=== PATIENT | female | born 1960 | race Caucasian/White ===

== ENCOUNTER → 2016-11-16 | Outpatient (CLI) | payer BC ==
[2016-11-16 08:57] LABS: Basophils # (A) 0.2 k/uL (0-0.2); Basophils % (A) 3 %; CH 28.4; CHCM 33.1; Eosinophils # (A) 0.9 k/uL (0-0.7); Eosinophils % (A) 10 %; HCT 36.2 % (34.0-46.0); HDW 2.66; HGB 11.8 gm/dL (11.4-16.0); Luc # (Auto) 0.24; Luc % (Auto) 3; Lymphocytes # (A) 3.3 k/uL (1.0-4.8); Lymphocytes % (A) 37 %; MCHC 32.6 g/dL (31.0-37.0); Mean Platelet Volume 8.3; Monocytes # (A) 0.5 k/uL (0-1.0); Monocytes % (A) 6 %; Neutrophils # (A) 3.7 k/uL (1.3-7.7); Neutrophils % (A) 42 %; RBC 4.21 m/uL (3.80-5.40); RDW 12.3 % (11.5-15.5); WBC 8.9 k/uL (3.8-10.6); WBC (Perox) 9.44
[2016-11-16 12:31] LABS: % Iron Saturation 9.3 % (20-50)
== END | disposition home or self-care (01) ==
LOC: LABWHC1 08:19
PROVIDERS: ATTEND Internal Medicine Endocrinology, Diabetes & Metabolism
DX: E11.649 Type 2 diabetes mellitus with hypoglycemia without coma (principal); E78.5 Hyperlipidemia, unspecified; E03.9 Hypothyroidism, unspecified; E11.65 Type 2 diabetes mellitus with hyperglycemia
CPT/HCPCS: 36415; 82607; 82728; 83036; 83540; 83550; 84439; 84443; 85025

== ENCOUNTER → 2017-03-18 | Outpatient (CLI) | payer BC ==
[2017-03-18 13:26] VITALS: BP 128/80; PULSE 71; RESP 16; TEMP 98.4; BMI 33.1
--- NOTE | 2017-04-01 17:15 | P.HPBAR ---
Bariatric H&P - History & Physicial H&P Date: 04/01/17 History & Physicial: Visit/CC: Band adj Patient initial contact: Initial weight: 120.202 kg Initial weight in pounds: 265.00 Height: 5 ft 4 in Initial BMI: 45.4 Last weight: Current weight: 87.657 kg Current weight in pounds: 193.00 Current BMI: 33.1 [place] body weight (based on NIH guidelines): 54.431 kg Excess body weight loss: 49.6% The patient is a 56 year-old F who presents for Bariatric Assessment. Patient presents today for her LAP-BAND follow-up. She is requesting a fill of her LAP- BAND. She is currently hunger. Past Medical History History of Any Multi-Drug Resistant Organisms: None Reported Past Surgical History: Ear Surgery Additional Past Surgical History / Comment(s): sinus surgery Smoking Status: Never smoker Surgical - Exam Vital Signs Temp Pulse Resp BP 98.4 F 71 16 128/80 03/18/17 13:17 03/18/17 13:17 03/18/17 13:17 03/18/17 13:17 - General well developed - Abdomen Abdomen: soft, non tender Bariatric Assessment & Plan Plan: Patient's lap band was adjusted. She currently is 9.4 mL in the band. She'll follow-up in one month for recheck. Bariatric Checklist Checklist: Plan: Checklist: EGD: 1. Hiatal hernia: 2. H. Pylori: HgbA1c: Vitamin D: Smoking: Never smoker Primary care physician referral: Dr. Reinoso Psychiatry clearance: Cardiology clearance: Sleep study: Diet journal: VTE risk score: VTE risk level: Rehab needs at discharge:
== END | disposition home or self-care (01) ==
LOC: BARWHC3 12:38
PROVIDERS: ATTEND Surgery
DX: Z09 Encounter for follow-up examination after completed treatment for conditions other than malignant neoplasm (principal); Z98.84 Bariatric surgery status
CPT/HCPCS: 99203

== ENCOUNTER → 2017-03-20 | Outpatient (CLI) | payer BC ==
[2017-03-20 09:43] VITALS: BP 122/70; PULSE 71; TEMP 97.8; BMI 32.5
--- NOTE | 2017-03-20 10:13 | P.HPBAR ---
Bariatric H&P - History & Physicial H&P Date: 03/20/17 History & Physicial: Visit/CC: lap band follow up Patient initial contact: Initial weight: 120.202 kg Initial weight in pounds: 265.00 Height: 5 ft 4 in Initial BMI: 45.4 Last weight: Current weight: 85.91 kg Current weight in pounds: 189.40 Current BMI: 32.5 [place] body weight (based on NIH guidelines): 54.431 kg Excess body weight loss: 52.1% The patient is a 56 year-old F who presents for Bariatric Assessment. Patient presents today for LAP-BAND follow-up. She had an adjustment performed 72 hours ago. She states she her band is too tight. She's had dysphagia. Past Medical History History of Any Multi-Drug Resistant Organisms: None Reported Past Surgical History: Ear Surgery Additional Past Surgical History / Comment(s): sinus surgery Smoking Status: Never smoker Surgical - Exam Vital Signs Temp Pulse BP 97.8 F 71 122/70 03/20/17 09:39 03/20/17 09:39 03/20/17 09:39 - General well developed, no distress - Abdomen Abdomen: soft, non tender Bariatric Assessment & Plan Plan: Dysphagia secondary to LAP-BAND adjustment. Patient LAP-BAND was emptied. 0.5 mL remove her LAP-BAND. She currently has 9.2 mL in the band. She's ill drink water without difficulty. Patient will follow-up in one month. Bariatric Checklist Checklist: Plan: Checklist: EGD: 1. Hiatal hernia: 2. H. Pylori: HgbA1c: Vitamin D: Smoking: Never smoker Primary care physician referral: Dr. Reinoso Psychiatry clearance: Cardiology clearance: Sleep study: Diet journal: VTE risk score: VTE risk level: Rehab needs at discharge:
== END ==
LOC: BARWHC3 09:19
PROVIDERS: ATTEND Surgery
DX: Z48.815 Encounter for surgical aftercare following surgery on the digestive system (principal); Z98.84 Bariatric surgery status
CPT/HCPCS: 99212

== ENCOUNTER → 2017-05-20 | Outpatient (CLI) | payer BC ==
[2017-05-20 14:26] VITALS: BP 145/63; PULSE 78; TEMP 98.7; BMI 32.0
--- NOTE | 2017-05-20 14:51 | P.HPBAR ---
Bariatric H&P - History & Physicial H&P Date: 05/20/17 History & Physicial: Visit/CC: lap band follow up Patient initial contact: Initial weight: 120.202 kg Initial weight in pounds: 265.00 Height: 5 ft 4 in Initial BMI: 45.4 Last weight: 189 Current weight: 84.64 kg Current weight in pounds: 186.60 Current BMI: 32.0 [place] body weight (based on NIH guidelines): 54.431 kg Excess body weight loss: 54.0% The patient is a 56 year-old F who presents for Bariatric Assessment. Patient presents today for lab band follow. She has complaints of GERD and dysphagia. She is requesting fluid be removed from her band. Past Medical History History of Any Multi-Drug Resistant Organisms: None Reported Past Surgical History: Ear Surgery Additional Past Surgical History / Comment(s): sinus surgery Smoking Status: Never smoker Surgical - Exam Vital Signs Temp Pulse BP 98.7 F 78 145/63 05/20/17 14:23 05/20/17 14:23 05/20/17 14:23 - General well developed, no distress - Eyes PERRL - Abdomen Abdomen: soft, non tender Bariatric Assessment & Plan Plan: Patient LAP-BAND was just. 2 mL her was removed for band. She currently has 7.2 mL in the band. She was able to water without difficulty. Bariatric Checklist Checklist: Plan: Checklist: EGD: 1. Hiatal hernia: 2. H. Pylori: HgbA1c: Vitamin D: Smoking: Never smoker Primary care physician referral: Dr. Reinoso Psychiatry clearance: Cardiology clearance: Sleep study: Diet journal: VTE risk score: VTE risk level: Rehab needs at discharge:
== END | disposition home or self-care (01) ==
LOC: BARWHC3 13:37
PROVIDERS: ATTEND Surgery
DX: Z48.815 Encounter for surgical aftercare following surgery on the digestive system (principal); Z98.84 Bariatric surgery status
CPT/HCPCS: 99212

== ENCOUNTER → 2017-05-28 | Outpatient (CLI) | payer BC ==
[2017-05-28 09:04] LABS: Basophils # (A) 0.1 k/uL (0-0.2); Basophils % (A) 1 %; CH 26.8; Eosinophils # (A) 0.6 k/uL (0-0.7); Eosinophils % (A) 7 %; HCT 35.6 % (34.0-46.0); HDW 2.62; HGB 11.8 gm/dL (11.4-16.0); Luc # (Auto) 0.28; Luc % (Auto) 3; Lymphocytes # (A) 3.9 k/uL (1.0-4.8); Lymphocytes % (A) 44 %; MCH 27.9 pg (25.0-35.0); MCHC 33.2 g/dL (31.0-37.0); MCV 84.1 fL (80.0-100.0); Mean Platelet Volume 7.9; Monocytes # (A) 0.6 k/uL (0-1.0); Monocytes % (A) 6 %; Neutrophils # (A) 3.5 k/uL (1.3-7.7); Neutrophils % (A) 39 %; RBC 4.23 m/uL (3.80-5.40); RDW 12.6 % (11.5-15.5); WBC (Perox) 9.02
[2017-05-28 09:33] LABS: Calcium 9.1 mg/dL (8.4-10.2); Potassium 4.3 mmol/L (3.5-5.1); Total Bilirubin 0.6 mg/dL (0.2-1.3); Total Protein 6.1 g/dL (6.3-8.2); Uric Acid 7.3 mg/dL (3.7-7.4)
[2017-05-28 09:44] LABS: % Iron Saturation 15.7 % (20-50)
[2017-05-28 15:00] LABS: Hemoglobin A1C 7.8 % (4.2-6.1)
== END | disposition home or self-care (01) ==
LOC: LABWHC1 07:28
PROVIDERS: ATTEND Internal Medicine Endocrinology, Diabetes & Metabolism
DX: E78.5 Hyperlipidemia, unspecified (principal); E03.8 Other specified hypothyroidism; E11.649 Type 2 diabetes mellitus with hypoglycemia without coma
CPT/HCPCS: 36415; 80053; 80061; 82306; 82607; 82728; 82746; 83036; 83540; 83550; 84436; 84439; 84443; 84550; 85025

== ENCOUNTER → 2017-06-17 | Outpatient (CLI) | payer BC ==
[2017-06-17 10:06] LABS: Calcium 9.5 mg/dL (8.4-10.2); Potassium 4.4 mmol/L (3.5-5.1); Total Bilirubin 0.3 mg/dL (0.2-1.3); Total Protein 6.5 g/dL (6.3-8.2)
== END | disposition home or self-care (01) ==
LOC: LABWHC1 09:18
PROVIDERS: ATTEND Internal Medicine Endocrinology, Diabetes & Metabolism
DX: E11.649 Type 2 diabetes mellitus with hypoglycemia without coma (principal)
CPT/HCPCS: 36415; 80053

== ENCOUNTER → 2017-06-27 | Outpatient (CLI) | payer BC ==
--- NOTE | 2017-07-01 10:39 | MM ---
Reason for exam: screening (asymptomatic). Last mammogram was performed 1 year and 2 months ago. History: Patient is postmenopausal and is nulliparous. Family history of breast cancer in paternal cousin at age 55, breast cancer in paternal cousin at age 60, and breast cancer in maternal aunt at age 65. Took hormonal contraceptives for 5 years beginning at age 18. Took estrogen for 1 year beginning at age 46. Took progesterone for 19 years beginning at age 28. Physical Findings: A clinical breast exam by your physician is recommended on an annual basis and results should be correlated with mammographic findings. MG Screening Mammo w CAD Bilateral CC and MLO view(s) were taken. Prior study comparison: April 30, 2016, bilateral MG screening mammo w CAD. April 21, 2015, bilateral MG screening mammo w CAD. March 09, 2014, bilateral MG screening mammo w CAD. The breast tissue is heterogeneously dense. This may lower the sensitivity of mammography. Finding: There are typically benign round, diffuse, regional and grouped calcifications in both breasts. Developing asymmetry in the right CC view subareolar level. New finding since April 30, 2016, April 21, 2015, and March 09, 2014. ASSESSMENT: Incomplete: need additional imaging evaluation, BI-RAD 0 RECOMMENDATION: Special view mammogram of the right breast. If lesion persists on supplemental views, image directed ultrasound is recommended. [facility] will attempt to contact patient to return for supplemental views and ultrasound if indicated.
== END | disposition home or self-care (01) ==
LOC: RADMAMWWP 07:23
PROVIDERS: ATTEND Internal Medicine Critical Care Medicine
DX: Z12.31 Encounter for screening mammogram for malignant neoplasm of breast (principal)

== ENCOUNTER → 2017-07-09 | Outpatient (CLI) | payer BC ==
--- NOTE | 2017-07-09 07:59 | MM ---
Reason for exam: additional evaluation requested from abnormal screening. Last mammogram was performed less than 1 month ago. History: Patient is postmenopausal and is nulliparous. Family history of breast cancer in paternal cousin at age 55, breast cancer in paternal cousin at age 60, and breast cancer in maternal aunt at age 65. Took hormonal contraceptives for 5 years beginning at age 18. Took estrogen for 1 year beginning at age 46. Took progesterone for 19 years beginning at age 28. Physical Findings: Nurse did not find any significant physical abnormalities on exam. MG Work Up Mamm w CAD RT Spot compression CC, spot compression MLO, and ML view(s) were taken of the right breast. Prior study comparison: June 27, 2017, bilateral MG screening mammo w CAD. April 30, 2016, bilateral MG screening mammo w CAD. The breast tissue is heterogeneously dense. This may lower the sensitivity of mammography. No suspicious abnormality. Abnormality appear as fibroglandular tissue on additional views. These results were verbally communicated with the patient and result sheet given to the patient on 07/09/17. ASSESSMENT: Benign, BI-RAD 2 RECOMMENDATION: Return to routine screening mammogram schedule for both breasts.
== END | disposition home or self-care (01) ==
LOC: RADMAMWWP 06:56
PROVIDERS: ATTEND Internal Medicine Critical Care Medicine
DX: R92.8 Other abnormal and inconclusive findings on diagnostic imaging of breast (principal)

== ENCOUNTER → 2017-08-19 | Outpatient (CLI) | payer BC ==
[2017-08-19 13:25] VITALS: BP 121/63; PULSE 68; RESP 16; TEMP 97.9; BMI 32.8
--- NOTE | 2017-08-19 15:39 | P.HPBAR ---
Bariatric H&P - History & Physicial H&P Date: 08/19/17 History & Physicial: Visit/CC: band adj Patient initial contact: Initial weight: 120.202 kg Initial weight in pounds: 265.00 Height: 5 ft 4 in Initial BMI: 45.4 Last weight: 191 Current weight: 86.806 kg Current weight in pounds: 191.00 Current BMI: 32.8 [place] body weight (based on NIH guidelines): 54.431 kg Excess body weight loss: 51.0% The patient is a 56 year-old F who presents for Bariatric Assessment. Patient presents today for lab band follow up. She is hungry and is requesting a fill. Past Medical History History of Any Multi-Drug Resistant Organisms: None Reported Past Surgical History: Ear Surgery Additional Past Surgical History / Comment(s): sinus surgery Smoking Status: Never smoker Surgical - Exam Vital Signs Temp Pulse Resp BP 97.9 F 68 16 121/63 08/19/17 13:23 08/19/17 13:23 08/19/17 13:23 08/19/17 13:23 - General well developed, no distress - Eyes PERRL - ENT normal pinna - Neck no masses - Respiratory normal expansion Bariatric Assessment & Plan Plan: Patient's lap is adjusted. She had 0.5 mL added to her band. She currently is 8.7 mL in the band. She was ill drink water without difficulty. She'll follow- up in 8 weeks. Bariatric Checklist Checklist: Plan: Checklist: EGD: 1. Hiatal hernia: 2. H. Pylori: HgbA1c: Vitamin D: Smoking: Never smoker Primary care physician referral: Dr. Reinoso Psychiatry clearance: Cardiology clearance: Sleep study: Diet journal: VTE risk score: VTE risk level: Rehab needs at discharge:
== END | disposition home or self-care (01) ==
LOC: BARWHC3 12:42
PROVIDERS: ATTEND Surgery
DX: Z48.815 Encounter for surgical aftercare following surgery on the digestive system (principal); Z98.84 Bariatric surgery status
CPT/HCPCS: 99212

== ENCOUNTER → 2018-07-22 | Outpatient (CLI) | payer BC ==
--- NOTE | 2018-07-24 11:37 | MM ---
Reason for exam: screening (asymptomatic). Last mammogram was performed 1 year ago. History: Patient is postmenopausal and is nulliparous. Family history of breast cancer in paternal cousin at age 55, breast cancer in paternal cousin at age 60, and breast cancer in maternal aunt at age 65. Took hormonal contraceptives for 5 years beginning at age 18. Took estrogen for 1 year beginning at age 46. Took progesterone for 19 years beginning at age 28. Physical Findings: A clinical breast exam by your physician is recommended on an annual basis and results should be correlated with mammographic findings. MG Screening Mammo w CAD Bilateral CC and MLO view(s) were taken. Prior study comparison: July 09, 2017, right breast MG work up mamm w CAD RT. June 27, 2017, bilateral MG screening mammo w CAD. The breast tissue is heterogeneously dense. This may lower the sensitivity of mammography. Stable scattered calcifications. There is no discrete abnormality. No significant changes when compared with prior studies. ASSESSMENT: Benign, BI-RAD 2 RECOMMENDATION: Routine screening mammogram of both breasts in 1 year.
== END | disposition home or self-care (01) ==
LOC: RADMAMWWP 10:05
PROVIDERS: ATTEND Internal Medicine Endocrinology, Diabetes & Metabolism
DX: Z12.31 Encounter for screening mammogram for malignant neoplasm of breast (principal)
CPT/HCPCS: 77067

== ENCOUNTER 2019-04-02 07:38 | Emergency (ER) | payer BC ==
[2019-04-02 07:47] VITALS: BP 135/82; PULSE 92; RESP 18; TEMP 98.2
[2019-04-02] MEDS ORDERED: ACETAMINOPHEN TAB 325 MG TAB PO STA (07:58)
--- NOTE | 2019-04-02 08:12 | ED ---
General Adult HPI - General Chief complaint: Fall Stated complaint: Fall, knee pain Time Seen by Provider: 04/02/19 07:48 Source: patient, RN notes reviewed Mode of arrival: wheelchair Limitations: no limitations - History of Present Illness Initial comments: Kesha is a 58-year-old female with a past medical history of asthma, diabetes, hyperlipidemia, hypertension, thyroid disorder who presents to the emergency department for a fall. Patient states that she is dog sitting for someone and was in her house and she tripped and fell. States that she missed the last step and fell forward onto her left knee. Patient states she also hit her right side ribs on a table. Patient does not believe she hit her head. States she does not have any bumps in her head and no headache. No loss of consciousness. No blood thinners. States this Fall was purely mechanical.Patient has no other complaints at this time including shortness of breath, chest pain, abdominal pain, nausea or vomiting, headache, or visual changes. - Related Data Home Medications Medication Instructions Recorded Confirmed ALPRAZolam [Xanax] 0.5 mg PO TID 08/13/14 08/20/17 Allopurinol [Zyloprim] 100 mg PO BID 08/13/14 08/20/17 Aspirin 81 mg PO DAILY 08/13/14 08/20/17 Atenolol [Tenormin] 25 mg PO BID 08/13/14 08/20/17 Atorvastatin [Lipitor] 10 mg PO MOWEFR 08/13/14 08/20/17 Cetirizine HCl 10 mg PO DAILY 08/13/14 08/20/17 Diphenox-Atrop 2.5-0.025 mg 2 tab PO QID PRN 08/13/14 08/20/17 [Lomotil] Ergocalciferol [Vitamin D2 50,000 unit PO Q7D 08/13/14 08/20/17 (DRISDOL)] Exenatide [Byetta] 5 mcg SQ BID 08/13/14 08/20/17 Fluticasone/Salmeterol [Advair 2 puff INHALATION DAILY 08/13/14 08/20/17 250-50 Diskus] Ibuprofen [Advil] 200 mg PO Q8HR PRN 08/13/14 08/20/17 Levothyroxine Sodium [Synthroid] 88 mcg PO QAM 08/13/14 08/20/17 Lisinopril-Hctz 10-12.5 mg 1 each PO QAM 08/13/14 08/20/17 [Zestoretic 10-12.5] Montelukast [Singulair] 10 mg PO HS 08/13/14 08/20/17 Triamcinolone Acetonide [Nasacort] 2 sprays EA NOSTRIL DAILY 08/13/14 08/20/17 diphenhydrAMINE [Benadryl] 25 mg PO HS 08/13/14 08/20/17 glyBURIDE [Diabeta] 1.25 mg PO AC-LUNCH 08/13/14 08/20/17 metFORMIN HCL [Glucophage] 500 mg PO QID 08/13/14 08/20/17 Allergies Allergy/AdvReac Type Severity Reaction Status Date / Time amoxicillin Allergy Rash/Hives Verified 04/02/19 07:43 levofloxacin [From Levaquin] Allergy TENDONITIS Verified 04/02/19 07:43 Penicillins Allergy Rash/Hives Verified 04/02/19 07:43 Sulfa (Sulfonamide Allergy Rash/Hives Verified 04/02/19 07:43 Antibiotics) Review of Systems ROS Statement: Those systems with pertinent positive or pertinent negative responses have been documented in the HPI. ROS Other: All systems not noted in ROS Statement are negative. Past Medical History Past Medical History: Asthma, Diabetes Mellitus, Hyperlipidemia, Hypertension, Thyroid Disorder Additional Past Medical History / Comment(s): [facility] History of Any Multi-Drug Resistant Organisms: None Reported Past Surgical History: Ear Surgery Additional Past Surgical History / Comment(s): sinus surgery Past Psychological History: Anxiety Smoking Status: Never smoker Past Alcohol Use History: None Reported Past Drug Use History: None Reported General Exam Limitations: no limitations General appearance: alert, in no apparent distress Head exam: Present: atraumatic, normocephalic, normal inspection Eye exam: Present: normal appearance, PERRL, EOMI. Absent: scleral icterus, conjunctival injection, periorbital swelling ENT exam: Present: normal exam, mucous membranes moist Neck exam: Present: normal inspection, full ROM. Absent: tenderness, meningismus, lymphadenopathy Respiratory exam: Present: normal lung sounds bilaterally, chest wall tenderness (mild right lateral tendernesss with minimal bruising.). Absent: respiratory distress, wheezes, rales, rhonchi, stridor Cardiovascular Exam: Present: regular rate, normal rhythm, normal heart sounds. Absent: systolic murmur, diastolic murmur, rubs, gallop, clicks GI/Abdominal exam: Present: soft, normal bowel sounds. Absent: distended, tenderness, guarding, rebound, rigid Extremities exam: Present: tenderness (Minimal generalized tenderness noted over the left anterior knee. No posterior knee tenderness.), normal capillary refill (Capillary refill less than 2 seconds, DP pulse 2+ in the left lower extremity. Equal to the right lower extremity.), other (Sensation intact in the left lower extremity). Absent: full ROM (Patient has limited range of motion of the left knee to about 15 flexion, full extension), joint swelling (No significant edema or ecchymosis present in the left lower extremity), calf tenderness Neurological exam: Present: alert, oriented X3, CN II-XII intact, normal gait, other (GCS 15) Psychiatric exam: Present: normal affect, normal mood Course Vital Signs 04/02/19 07:43 Temperature 98.2 F Pulse Rate 92 Respiratory 18 Rate Blood Pressure 135/82 O2 Sat by Pulse 100 Oximetry Procedures - Orthopedic Splinting/Casting Injury #1 Side: left Lower Extremity Injury Location: knee Lower Extremity Immobilizer: knee immobilizer Additional Comments: Neurovascular status intact after splint applied Medical Decision Making - Medical Decision Making 58-year-old female presents for left knee pain after a fall yesterday. Fall was mechanical. Patient also has some minimal bruising noted to the right upper lateral ribs. Patient does have limited range motion of the left knee to about 15. No significant edema, ecchymosis, or erythema present. Neurovascular status intact in the left lower extremity. X-ray shows no acute osseous abnormality, there is mild degenerative changes. Patient is ambulatory. Knee immobilizer was placed. Chest x-ray shows no acute cardiopulmonary process. No acute displaced right rib fracture. Clinically no significant concern for rib fractures patient is not having much pain in this area. Recommended follow-up with orthopedics. Recommended return if she has any worsening symptoms. Disposition Clinical Impression: Knee pain, left, Fall Disposition: HOME SELF-CARE Condition: Good Instructions (If sedation given, give patient instructions): Knee Pain (ED) Additional Instructions: Please take Motrin and Tylenol for pain. Please follow-up with orthopedics in one to 2 days. If you're having any worsening symptoms return to the emergency department. Is patient prescribed a controlled substance at d/c from ED?: No Referrals: Heraclio Reinoso DO [Primary Care Provider] - 1-2 days Matheus Mlils MD [STAFF PHYSICIAN] - 1-2 days Time of Disposition: 09:23
--- NOTE | 2019-04-02 08:46 | XR ---
EXAMINATION TYPE: XR ribs RT w pa chest xray DATE OF EXAM: 04/02/2019 CLINICAL HISTORY: Chest pain and right rib pain 3 no stated injury. TECHNIQUE: Single frontal view of the chest is obtained. COMPARISON: None FINDINGS: There is no focal air space opacity, pleural effusion, or pneumothorax seen. The cardiac silhouette size is within normal limits. No gross evidence of acute displaced nor chronic healed frac ture deformity of the ribs with particular attention to the right ribs. Gastric lap band is partially visualized. IMPRESSION: No acute cardiopulmonary process. No acute displaced or chronic healed right rib fractur e deformity is seen.
--- NOTE | 2019-04-02 08:48 | XR ---
EXAMINATION TYPE: XR knee 4V LT DATE OF EXAM: 04/02/2019 COMPARISON: None HISTORY: Pain fall TECHNIQUE: 4 view left knee FINDINGS: Joint spaces are preserved. Medial tibial plateau and medial femoral condylar spurring is p resent. No joint effusion is evident. Patellar spurring is present medially and laterally. Anterior s uperior patellar spur is also present. No acute fractures or dislocations are evident. IMPRESSION: 1. Mild degenerative changes left knee. 2. No acute osseous abnormality.
== END 2019-04-02 09:31 | disposition home or self-care (01) ==
LOC: EC 07:38
DX: M25.562 Pain in left knee (principal); S20.211A Contusion of right front wall of thorax, initial encounter; F41.9 Anxiety disorder, unspecified; E78.5 Hyperlipidemia, unspecified; I10 Essential (primary) hypertension; E07.9 Disorder of thyroid, unspecified; E11.9 Type 2 diabetes mellitus without complications; J45.909 Unspecified asthma, uncomplicated; Z79.84 Long term (current) use of oral hypoglycemic drugs; Z79.890 Hormone replacement therapy; Z79.82 Long term (current) use of aspirin; Z79.899 Other long term (current) drug therapy; Z88.0 Allergy status to penicillin; Z88.1 Allergy status to other antibiotic agents; Z88.2 Allergy status to sulfonamides; W10.9XXA Fall (on) (from) unspecified stairs and steps, initial encounter
CPT/HCPCS: 71101; 73564; 99283; L1830

== ENCOUNTER → 2019-08-28 | Outpatient (CLI) | payer BC ==
--- NOTE | 2019-08-28 14:08 | MM ---
Reason for exam: screening (asymptomatic). Last mammogram was performed 1 year and 1 month ago. History: Patient is postmenopausal and is nulliparous. Family history of breast cancer in paternal cousin at age 55, breast cancer in paternal cousin at age 60, and breast cancer in maternal aunt at age 65. Took hormonal contraceptives for 5 years beginning at age 18. Took estrogen for 1 year beginning at age 46. Took progesterone for 19 years beginning at age 28. Physical Findings: A clinical breast exam by your physician is recommended on an annual basis and results should be correlated with mammographic findings. MG Screening Mammo w CAD Bilateral CC and MLO view(s) were taken. Prior study comparison: July 22, 2018, bilateral MG screening mammo w CAD. July 09, 2017, right breast MG work up mamm w CAD RT. The breast tissue is heterogeneously dense. This may lower the sensitivity of mammography. There are benign appearing round calcifications bilaterally. There is no discrete abnormality. ASSESSMENT: Benign, BI-RAD 2 RECOMMENDATION: Routine screening mammogram of both breasts in 1 year.
== END | disposition home or self-care (01) ==
LOC: RADMAMWWP 06:55
PROVIDERS: ATTEND Internal Medicine
DX: Z12.31 Encounter for screening mammogram for malignant neoplasm of breast (principal)
CPT/HCPCS: 77067

== ENCOUNTER → 2020-10-20 | Outpatient (CLI) | payer BC ==
--- NOTE | 2020-10-21 14:22 | MM ---
Reason for exam: screening (asymptomatic). Last mammogram was performed 1 year and 2 months ago. History: Patient is postmenopausal and is nulliparous. Family history of breast cancer in paternal cousin at age 55, breast cancer in paternal cousin at age 60, and breast cancer in maternal aunt at age 65. Took hormonal contraceptives for 5 years beginning at age 18. Took estrogen for 1 year beginning at age 46. Took progesterone for 19 years beginning at age 28. Physical Findings: A clinical breast exam by your physician is recommended on an annual basis and results should be correlated with mammographic findings. MG Screening Mammo w CAD Bilateral CC and MLO view(s) were taken. Prior study comparison: August 28, 2019, bilateral MG screening mammo w CAD. July 22, 2018, bilateral MG screening mammo w CAD. The breast tissue is heterogeneously dense. This may lower the sensitivity of mammography. Stable scattered calcifications. There is no discrete abnormality. No significant changes when compared with prior studies. ASSESSMENT: Benign, BI-RAD 2 RECOMMENDATION: Routine screening mammogram of both breasts in 1 year.
== END | disposition home or self-care (01) ==
LOC: RADMAMWWP 11:05
PROVIDERS: ATTEND Family Medicine
DX: Z12.31 Encounter for screening mammogram for malignant neoplasm of breast (principal)
CPT/HCPCS: 77067

== ENCOUNTER → 2021-12-25 | Outpatient (CLI) | payer BC ==
--- NOTE | 2021-12-26 12:03 | MM ---
Reason for exam: screening (asymptomatic). Last mammogram was performed 1 year and 2 months ago. History: Patient is postmenopausal and is nulliparous. Family history of breast cancer in paternal cousin at age 55, breast cancer in paternal cousin at age 60, and breast cancer in maternal aunt at age 65. Took hormonal contraceptives for 5 years beginning at age 18. Took estrogen for 1 year beginning at age 46. Took progesterone for 19 years beginning at age 28. Physical Findings: A clinical breast exam by your physician is recommended on an annual basis and results should be correlated with mammographic findings. MG Screening Mammo w CAD Bilateral CC, MLO, and XCCL view(s) were taken. Prior study comparison: October 20, 2020, bilateral MG screening mammo w CAD. August 28, 2019, bilateral MG screening mammo w CAD. The breast tissue is heterogeneously dense. This may lower the sensitivity of mammography. Benign appearing bilateral calcifications. There is chronic nodularity in the right breast. No significant changes when compared with prior studies. ASSESSMENT: Benign, BI-RAD 2 RECOMMENDATION: Routine screening mammogram of both breasts in 1 year.
== END | disposition home or self-care (01) ==
LOC: RADMAMWWP 09:38
PROVIDERS: ATTEND Family Medicine
DX: Z12.31 Encounter for screening mammogram for malignant neoplasm of breast (principal); Z78.0 Asymptomatic menopausal state; Z80.3 Family history of malignant neoplasm of breast
CPT/HCPCS: 77067

== ENCOUNTER 2022-01-19 09:20 | Day surgery (SDC) | payer BC ==
[2022-01-17 13:14] VITALS: BMI 39.4
[~2022-01-19 09:20] MED LIST: LACTATED RINGERS 1,000 ML IV SCH
[2022-01-19 09:52] VITALS: TEMP 98.6
[2022-01-19 10:04] LABS: Glucose,Whole Blood 121 mg/dL (75-99)
[2022-01-19] MEDS ORDERED: PROPOFOL 10 MG/ML 20 ML VIAL IV ONE (10:29)
--- NOTE | 2022-01-19 10:48 | P.PCN ---
Date of Procedure: 01/19/22 Procedure(s) Performed: BRIEF HISTORY: Patient is a 58-year-old pleasant female scheduled for an elective colonoscopy as a part of evaluation of prior history of colon polyps. Her last colonoscopy was 5 years ago. PROCEDURE PERFORMED: Colonoscopy. PREOPERATIVE DIAGNOSIS: History of colon polyps. IV sedation per Anesthesia. PROCEDURE: After informed consent was obtained, the patient, was brought into the endoscopy unit. IV sedation was administered by Anesthesia under continuous monitoring. Digital rectal examination was normal. Initially the Olympus CF-160 flexible video colonoscope was then inserted in the rectum, gradually advanced into the cecum without any difficulty. Careful examination was performed as the scope was gradually being withdrawn. Ileocecal valve and the appendiceal orifice were visualized and appeared normal. Prep was excellent. Mucosa of the cecum, ascending colon, transverse colon, descending colon, sigmoid colon, and rectum appeared normal. Scattered sigmoid diverticulosis. Retroflexion was performed in the rectum and no lesions were seen. The patient tolerated the procedure well. IMPRESSION: Normal-appearing colon from rectum to cecum with no evidence of colorectal neoplasia Scattered sigmoid diverticulosis. RECOMMENDATIONS: Findings of this examination were discussed with the patient as well as her family. She was advised to have a repeat colonoscopy in 5 years now because of the prior history of colon polyps.
[2022-01-19 11:05] VITALS: BP 103/62; PULSE 78; RESP 16
== END 2022-01-19 11:21 | disposition home or self-care (01) ==
LOC: ORWHC2ENDO 09:20
PROVIDERS: ATTEND Internal Medicine Gastroenterology
DX: K57.30 Diverticulosis of large intestine without perforation or abscess without bleeding (principal); Z86.010 Personal history of colon polyps; J45.909 Unspecified asthma, uncomplicated; E11.9 Type 2 diabetes mellitus without complications; E07.9 Disorder of thyroid, unspecified; I10 Essential (primary) hypertension; E78.5 Hyperlipidemia, unspecified; Z79.899 Other long term (current) drug therapy; Z88.2 Allergy status to sulfonamides; Z88.3 Allergy status to other anti-infective agents; Z88.8 Allergy status to other drugs, medicaments and biological substances; N19 Unspecified kidney failure
CPT/HCPCS: 45378; J2704